=== PATIENT | female | born 1940 | race Caucasian/White ===

== ENCOUNTER 2017-09-09 08:41 | Day surgery (SDC) | payer OTHER ==
[~2017-09-09 08:41] MED LIST: CLINDAMYCIN 900 MG/50 ML D5W IVPB IVPB
[2017-09-09] MEDS ORDERED: BUPIVACAINE 0.5%/EPI (SDV) 30 ML INJ (09:42)
[2017-09-09] MEDS ORDERED: PROPOFOL 20 ML (09:51)
[2017-09-09] MEDS ORDERED: GLYCOPYRROLATE 0.4 MG INJ (09:51)
[2017-09-09] MEDS ORDERED: LIDOCAINE 2% (SDV) 5 ML INJ (09:51)
[2017-09-09] MEDS ORDERED: NEOSTIGMINE 3 MG/3 ML SYRINGE (09:51)
[2017-09-09] MEDS ORDERED: FENTAnyl 50 MCG/ML VIAL (09:51)
[2017-09-09] MEDS ORDERED: MIDAZOLAM 1 MG/ML 2 ML INJ (09:51)
[2017-09-09] MEDS ORDERED: ROCURONIUM 50 MG INJ (09:51)
[2017-09-09] MEDS ORDERED: ONDANSETRON 4 MG INJ (09:52)
[2017-09-09] MEDS ORDERED: LIDOCAINE 1% (MPF) 30 ML INJ (10:24)
[2017-09-09] MEDS: LIDOCAINE 1%/EPI 30 ML INJ (10:50)
[2017-09-09] MEDS: POLYMYXIN/BACITRACIN 1L IRRIG (10:58)
[2017-09-09] MEDS ORDERED: ACETAMINOPHEN 325 MG TAB PO (11:30)
[2017-09-09] MEDS ORDERED: morphine 2 MG INJ IV (11:30)
[2017-09-09] MEDS: KETOROLAC 30 MG INJ IV (11:49)
== END 2017-09-09 15:00 | disposition home or self-care (01) ==
LOC: SDS 08:41
DX: Z45.02 Encounter for adjustment and management of automatic implantable cardiac defibrillator (principal); E78.5 Hyperlipidemia, unspecified; I11.0 Hypertensive heart disease with heart failure; I50.9 Heart failure, unspecified
CPT/HCPCS: 33263; 88300